=== PATIENT | female | born 1940 | race Caucasian/White ===

== ENCOUNTER 2022-12-11 09:27 | Outpatient (CLI) | payer MEDICARE, BC, SELFPAY ==
--- NOTE | 2022-12-11 06:00 | DI.RAD_ITS ---
Exam(s) XR PAIN CLINIC THORACIC SP 2V EXAM: XR PAIN CLINIC THORACIC SP 2V CLINICAL HISTORY: Dx: Thoracic Radiculopathy. TECHNIQUE: Fluoroscopy was provided for the referring physician for guidance with performing pain cl inic injection procedure. COMPARISON: No exams were available for comparison FINDINGS: Please see procedure note for details. Fluoro time: 24.9 seconds RADIATION DOSE DELIVERED: Ka,r=6.67 mGy
[2022-12-11 09:38] VITALS: BP 167/91; PULSE 98; RESP 20; TEMP 36.6; O2SAT 100
[2022-12-11 10:23] VITALS: BP 166/92; PULSE 104; RESP 19; O2SAT 100
[2022-12-11] MEDS: Dexamethasone Sod. Phos./Pres-Free 10 MG/ML VIAL IJ (10:25)
[2022-12-11] MEDS: Omnipaque 240 MG/ML 50 ML BTL IJ (10:25)
--- NOTE | 2022-12-11 10:42 | PDOC.PAIN_ITS ---
Date of service: 12/11/22 Time of Service: 10:42 Pain Managment Procedure Note Procedure Note Procedure Note: Procedure Note Thoracic Interlaminar Epidural Steroid Injection Date of Service: December 11, 2022 Patient:? HEMANTH GALEAS? Provider:? Roscoe Kemp DO, MPH HEMANTH has been referred to the [facility] for thoracic epidural steroid injection.? Pre-operative diagnosis: Thoracic Radiculopathy Post-operative diagnosis: Same Pre-procedure pain: VAS= 6/10 Comments: She was referred by her surgeon directly for this procedure. I did review the medical records and MRI. I also discussed the signs and symptoms with the patient. HEMANTH was interviewed and the medical record was reviewed.? There were no medical, pharmacologic, radiographic or other structural contraindications to attempting fluoroscopically guided thoracic interlaminar epidural steroid injection.? Risks, potential side effects, indications, and potential benefits of the procedure were reviewed with HEAMNTH.? Questions and concerns were addressed.? After it was clear that the patient was fully informed about the procedure, the printed consent form was signed by the patient and myself.? HEMANTH was placed in the prone position on the fluoroscopy table and automated blood pressure cuff as well as pulse oximeter was applied. A standard time-out procedure was performed. The skin entry point for entering the epidural space by a midline T11-T12 interlaminar approach was identified under fluoroscopy and marked.? The skin entry point was thoroughly cleaned with Chloroprep preparation and the skin was draped.? Next a mixture of 2 mls of 1% lidocaine was infiltrated into the area of the planned skin entry point and underlying subcutaneous tissues.? Next an 18 gauge Tuohy needle was placed under fluoroscopic guidance and with loss of resistance technique into the epidural space utilizing multiple AP and 55 degree contralateral fluoroscopic views.? Upon correct needle placement and loss of resistance, there were no paresthesia or return of blood or CSF through the needle. Next 1 mls of preservative-free Omnipaque 240 was injected with clear epidural spread in the A/P and oblique views. Next, a solution of 15 mg of preservative-free Dexamethasone was injected. This was followed with 1ml of preservative-free normal saline. No unusual discomfort was expressed by HEMANTH. The needle was withdrawn without difficulty. (49 mls of Omnipaque and 5 mg of Dexamethasone was wasted) HEMANTH was observed and was without hemodynamic, neurologic, or allergic reactions.? Fluoroscopic images were digitally archived. HEMANTH's vital signs were stable throughout the procedure and were as recorded in the doc flowsheet by the nursing staff.? If given, dosages of intravenous drugs for anxiolysis and analgesia were documented in MAR. Follow up plans and appointments were discussed with HEMANTH.? Post procedure instruction was given as documented in nursing documentation and having met discharge criteria, [facility] ? COMMENTS: No apparent complications. Post-procedure pain: VAS= 2/10. HEMANTH to contact [facility] as needed. If at least 50% improvement in pain and/or function for at least 3 months is achieved, this procedure can be repeated. I personally completed the entire procedure. ROSCOE KEMP DO, MPH ABPMR-subspecialty board certification in Pain Medicine [facility] for Pain Management
== END 2022-12-11 09:28 | disposition home or self-care (01) ==
PROVIDERS: PCP Family Medicine; Visit Provider Preventive Medicine Occupational Medicine
DX: M54.50 Low back pain, unspecified (principal); M54.14 Radiculopathy, thoracic region
CPT/HCPCS: 00123; 62321; 72070; Q9967

== ENCOUNTER 2023-03-27 07:58 | Outpatient (CLI) | payer MEDICARE, BC, SELFPAY ==
[2023-03-27 08:08] VITALS: BP 157/93; PULSE 85; RESP 20; TEMP 36.7; O2SAT 99
--- NOTE | 2023-03-27 08:53 | PDOC.PAIN ---
Date of service: 03/27/23 Time of Service: 08:53 Pain Managment Procedure Note Procedure Note Procedure Note: PROCEDURE NOTE THORACIC EPIDURAL STEROID INJECTION Date of Service: March 27, 2023 Patient:Rayne Paulino? Provider: Roscoe Kemp DO, MPH Rayne Ramirez has been referred to the [facility] for a thoracic epidural steroid injection. Pre-operative diagnosis: Thoracic Radiculopathy Post-operative diagnosis: Same Pre-Procedure Pain: VAS= 6/10 Comments: She last had this procedure on 12/11/22 and had >3 months of >50% pain relief. Her pain is starting to return. Rayne was interviewed and the medical record was reviewed.? There were no medical, pharmacologic, radiographic or other structural contraindications to attempting fluoroscopically guided thoracic epidural steroid injection.? Risks, potential side effects, indications, and potential benefits of the procedure were reviewed with Rayne.? Questions and concerns were addressed.? After it was clear that Rayne was fully informed about the procedure, the printed consent form was signed by the patient and myself.? Rayne was placed in the prone position on the fluoroscopy table and automated blood pressure cuff and pulse oximeter applied. The skin entry point for entering/approaching the epidural space for the lumbar epidural steroid injection was marked. Following thorough chlorhexadine preparation of the skin and draping and 1% lidocaine infiltration of the skin entry point and subcutaneous tissues, an 18 gauge Touhy needle was placed and advanced under fluoroscopic guidance and with loss of resistance technique into the T12-L1 epidural space. Needle tip placement and depth were aided and confirmed by fluoroscopy. There was no paresthesia or return of blood or CSF through the needle. 1 mls of Omnipaque 240 was injected with clear epidural spread confirmed with fluoroscopy. 15 mg of Dexamethasone was? injected. This was followed by 1 ml of preservative-free normal saline to flush the steroid out of the needle. There was no unusual discomfort expressed by Rayne. The needle was withdrawn without difficulty. (49 mls of Omnipaque was wasted) Rayne was observed and was without hemodynamic, neurologic, or allergic reactions.? Fluoroscopic images were digitally archived. Rayne's vital signs were stable throughout the procedure and were as recorded in nursing records. Follow up plans and appointments were discussed with Rayne. Post procedure instruction was given as documented in nursing records and having met discharge criteria Rayne was discharged from the [facility]. COMMENTS: I had difficulty getting into the T11-T12 interspace. After some time attempting to insert the needle at this sight, I did inform the patient and I did drop down to the T12-L1 level and had no difficulty getting in at this level. No apparent complications. Post-procedure pain: VAS= 0/10. Rayne to contact [facility] as needed. If at least 50% improvement in pain and/or function for at least 3 months is achieved, this procedure can be repeated. I personally performed this entire procedure. ROSCOE KEMP DO, MPH ABPMR-subspecialty board certification in Pain Medicine [facility]
--- NOTE | 2023-03-27 08:58 | DI.RAD_ITS ---
Exam(s) XR PAIN CLINIC THORACIC SP 2V EXAM: XR PAIN CLINIC THORACIC SP 2V CLINICAL HISTORY: DX: Thoracic radiculopathy. TECHNIQUE: Fluoroscopy was provided for the referring physician for guidance with performing pain cl inic injection procedure. COMPARISON: No exams were available for comparison FINDINGS: Please see procedure note for details. Fluoro time: 87.2 seconds RADIATION DOSE DELIVERED: Ka,r=16.25 mGy
[2023-03-27 08:59] VITALS: BP 164/94; PULSE 90; RESP 14; O2SAT 90
[2023-03-27] MEDS: Omnipaque 240 MG/ML 50 ML BTL IJ (09:01)
[2023-03-27] MEDS: Epidural Tray 1 EACH MC (09:01)
[2023-03-27] MEDS: Dexamethasone Sod. Phos./Pres-Free 10 MG/ML VIAL IJ (09:01)
== END 2023-03-27 07:59 | disposition home or self-care (01) ==
LOC: PC 07:59
PROVIDERS: PCP Family Medicine; Visit Provider Preventive Medicine Occupational Medicine
DX: M54.9 Dorsalgia, unspecified (principal); M54.14 Radiculopathy, thoracic region
CPT/HCPCS: 123; 62321; 72070; 00123; J1100; Q9967

== ENCOUNTER 2023-08-27 08:59 | Outpatient (CLI) | payer MEDICARE, BC, SELFPAY ==
[2023-08-27] VITALS (9 sets, daily range): BP systolic 189–213; BP diastolic 81–104; PULSE 71–90; RESP 17–20; TEMP 36.5; O2SAT 98–100
--- NOTE | 2023-08-27 09:51 | PDOC.PAIN ---
Date of service: 08/27/23 Time of Service: 09:52 Pain Managment Procedure Note Procedure Note Procedure Note: Procedure Note Thoracic Interlaminar Epidural Steroid Injection Date of Service: August 27, 2023 Patient:Rayne Duron? Provider:? Roscoe Kemp DO, MPH Rayne has been referred to the [facility] for thoracic epidural steroid injection.? Pre-operative diagnosis: Thoracic Radiculopathy Post-operative diagnosis: Same Pre-procedure pain: VAS= 7/10 Comments: She had >3 months of >50% pain relief with her last TESI in March. Her pain has mostly returned. Rayne was interviewed and the medical record was reviewed.? There were no medical, pharmacologic, radiographic or other structural contraindications to attempting fluoroscopically guided thoracic interlaminar epidural steroid injection.? Risks, potential side effects, indications, and potential benefits of the procedure were reviewed with Rayne.? Questions and concerns were addressed.? After it was clear that the patient was fully informed about the procedure, the printed consent form was signed by the patient and myself.? Rayne was placed in the prone position on the fluoroscopy table and automated blood pressure cuff as well as pulse oximeter was applied. A standard time-out procedure was performed. The skin entry point for entering the epidural space by a midline T12-L1 interlaminar approach was identified under fluoroscopy and marked.? The skin entry point was thoroughly cleaned with Chlorhexadine preparation and the skin was draped.? Next a mixture of 2 mls of 1% lidocaine was infiltrated into the area of the planned skin entry point and underlying subcutaneous tissues.? Next an 18 gauge Tuohy needle was placed under fluoroscopic guidance and with loss of resistance technique into the epidural space utilizing multiple AP and lateral fluoroscopic views.? Upon correct needle placement and loss of resistance, there were no paresthesia or return of blood or CSF through the needle. Next 1 mls of preservative-free Omnipaque 240 was injected with clear epidural spread in the A/P and lateral views. Next, a solution of 15 mg of preservative-free Dexamethasone was injected. This was followed with 1ml of preservative-free normal saline. No unusual discomfort was expressed by Rayne. The needle was withdrawn without difficulty. (49 mls of Omnipaque and 5 mg of Dexamethasone was wasted) Rayne was observed and was without hemodynamic, neurologic, or allergic reactions.? Fluoroscopic images were digitally archived. Rayne's vital signs were stable throughout the procedure and were as recorded in the doc flowsheet by the nursing staff.? If given, dosages of intravenous drugs for anxiolysis and analgesia were documented in MAR. Follow up plans and appointments were discussed with Rayne.? Post procedure instruction was given as documented in nursing documentation and having met discharge criteria, Rayne was [facility] from the [facility]. ? COMMENTS: I initially attempted to complete this procedure at T11-T12 as I did in March 2023, but could not enter the space as it was too tight. I did switch to T12-L1 and entered the space with no problems. I did inform the patient prior to this change and she approved. No apparent complications. Post-procedure pain: VAS= 4/10. Rayne to contact [place] for [facility] as needed. If at least 50% improvement in pain and/or function for at least 3 months is achieved, this procedure can be repeated. I personally completed the entire procedure. ROSCOE KEMP DO, MPH ABPMR-subspecialty board certification in Pain Medicine [facility] [facility]
--- NOTE | 2023-08-27 09:52 | DI.RAD_ITS ---
Exam(s) XR PAIN CLINIC THORACIC SP 2V EXAM: XR PAIN CLINIC THORACIC SP 2V CLINICAL HISTORY: Thoracic radiculopathy TECHNIQUE: 2D and realtime digital imaging was performed. Radiologist not present. CONTRAST MATERIAL: None. COMPARISON: No exams were available for comparison FINDINGS: Fluoroscopy was provided for pain management therapy. Please refer to procedure report or details. Radiation Exposure Index: Ka,r=14.92 mGy IMPRESSION: As above. RADIATION DOSE DELIVERED:
[2023-08-27] MEDS: Epidural Tray 1 EACH MC (10:08)
[2023-08-27] MEDS: Omnipaque 240 MG/ML 50 ML BTL IJ (10:08)
[2023-08-27] MEDS: Dexamethasone Sod. Phos./Pres-Free 10 MG/ML VIAL IJ (10:09)
== END 2023-08-27 09:00 | disposition home or self-care (01) ==
LOC: PC 09:00
PROVIDERS: PCP Internal Medicine; Visit Provider Preventive Medicine Occupational Medicine
DX: M54.14 Radiculopathy, thoracic region (principal); M54.50 Low back pain, unspecified
CPT/HCPCS: 62321; 72070; J1100; Q9967

== ENCOUNTER 2023-12-03 07:54 | Outpatient (CLI) | payer MEDICARE, BC, SELFPAY ==
--- NOTE | 2023-12-03 06:00 | DI.RAD_ITS ---
Exam(s) XR PAIN CLINIC THORACIC SP 2V EXAM: XR PAIN CLINIC THORACIC SP 2V CLINICAL HISTORY: DX: Lumbar Radiculopathy TECHNIQUE: 2D and realtime digital imaging was performed. CONTRAST MATERIAL: Refer to procedure report. COMPARISON: No exams were available for comparison FINDINGS: Fluoroscopy was provided for Dr. Kemp during the performance of a thoracic epidural steroid injectio n. Please refer to the procedure report for complete details. Ka,r=5.35 mGy IMPRESSION: RADIATION DOSE DELIVERED: 0.0 0.0 0
[2023-12-03 08:07] VITALS: BP 155/78; PULSE 82; RESP 18; TEMP 36.4; O2SAT 99
[2023-12-03 08:40] VITALS: PULSE 106; RESP 15; O2SAT 100
[2023-12-03 08:43] VITALS: BP 205/159; PULSE 104; PULSE 105; RESP 16; O2SAT 100
[2023-12-03 08:45] VITALS: BP 176/97; PULSE 107; PULSE 92; RESP 11; O2SAT 100
--- NOTE | 2023-12-03 08:52 | PDOC.PAIN ---
Date of service: 12/03/23 Time of Service: 08:52 Pain Managment Procedure Note Procedure Note Procedure Note: PROCEDURE NOTE THORACIC EPIDURAL STEROID INJECTION Date of Service: December 03, 2023 Patient:Rayne Paulino? Provider: Roscoe Kemp DO, MPH Rayne Ramirez has been referred to the [facility] for a Thoracic epidural steroid injection. Pre-operative diagnosis: Thoracic Radiculopathy ICD-10 M54.14 Post-operative diagnosis: Same Pre-Procedure Pain: VAS= 7 /10 with activity Comments: She had her last thoracic SARA on 08/27/23 and had >3 months of >50% functional improvement Rayne was interviewed and the medical record was reviewed.? There were no medical, pharmacologic, radiographic or other structural contraindications to attempting fluoroscopically guided Thoracic epidural steroid injection.? Risks, potential side effects, indications, and potential benefits of the procedure were reviewed with Rayne.? Questions and concerns were addressed.? After it was clear that Rayne was fully informed about the procedure, the printed consent form was signed by the patient and myself.? Rayne was placed in the prone position on the fluoroscopy table and automated blood pressure cuff and pulse oximeter applied. The skin entry point for entering/approaching the epidural space for the thoracic epidural steroid injection was marked. Following thorough chlorhexadine preparation of the skin and draping and 1% lidocaine infiltration of the skin entry point and subcutaneous tissues, an 18 gauge Touhy needle was placed and advanced under fluoroscopic guidance and with loss of resistance technique into the T12-L1 epidural space. Needle tip placement and depth were aided and confirmed by fluoroscopy. There was no paresthesia or return of blood or CSF through the needle. 1 mls of Omnipaque 240 was injected with clear epidural spread confirmed with fluoroscopy. 15 mg of Dexamethasone (10 mg/cc) was? injected. This was followed by 1 ml of preservative-free normal saline to flush the steroid out of the needle. There was no unusual discomfort expressed by Rayne. The needle was withdrawn without difficulty. (49 mls of Omnipaque was wasted) Rayne was observed and was without hemodynamic, neurologic, or allergic reactions.? Fluoroscopic images were digitally archived. Rayne's vital signs were stable throughout the procedure and were as recorded in nursing records. Follow up plans and appointments were discussed with Rayne. Post procedure instruction was given as documented in nursing records and having met discharge criteria Rayne was discharged from the [facility]. COMMENTS: No apparent complications. Post-procedure pain: VAS= 2/10. Rayne to contact [facility] as needed. If at least 50% improvement in pain and/or function for at least 3 months is achieved, this procedure can be repeated. I personally performed this entire procedure. ROSCOE KEMP DO, MPH ABPMR-subspecialty board certification in Pain Medicine [facility]
[2023-12-03] MEDS: Omnipaque 240 MG/ML 50 ML BTL IJ (08:54)
[2023-12-03] MEDS: Dexamethasone Sod. Phos./Pres-Free 10 MG/ML VIAL IJ (08:54)
[2023-12-03] MEDS: Epidural Tray 1 EACH MC (08:54)
== END 2023-12-03 07:55 | disposition home or self-care (01) ==
LOC: PC 07:54
PROVIDERS: PCP Family Medicine; Visit Provider Preventive Medicine Occupational Medicine
DX: M54.14 Radiculopathy, thoracic region (principal); M54.59 Other low back pain
CPT/HCPCS: 62321; 72070; J1100; Q9967

== ENCOUNTER 2024-03-23 09:38 | Outpatient (CLI) | payer MEDICARE, BC, SELFPAY ==
[2024-03-23 09:47] VITALS: BP 178/78; PULSE 85; RESP 18; TEMP 36.6; O2SAT 99
--- NOTE | 2024-03-23 09:48 | PDOC.PAIN ---
Date of service: 03/23/24 Time of Service: 10:35 Pain Managment Procedure Note Procedure Note Procedure Note: Thoracic Interlaminar Epidural Steroid Injection ? Location: L1-T12 ? Pre-procedure Diagnosis: M54.14- Radiculopathy, thoracic region ? Post-procedure Diagnosis: ?The same as above ? Sedation:? ? none ? Estimated blood loss:? less than 2 cc ? Surgeon:? 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 ? Procedure Detail:? The procedure and potential risks were explained to the patient and informed written consent was obtained. The patient was escorted to the procedure room and placed in the prone position. Pillows were utilized for proper positioning and comfort. Time out was performed in the procedure room with nursing staff confirming the patient's identity, procedure to be performed, allergies, and any blood thinning or anti-platelet medications.? The patient's neck and upper back was prepped with ChloraPrep and draped in a sterile fashion. Sterile technique was maintained throughout the procedure.? Sterile gloves were used, a face mask was worn, and new single dose vials of all medications were used with the top being swabbed with alcohol and given time to dry prior to withdrawal of medication. Using a 25-gauge 1.5 inch needle, 1% lidocaine was instilled into the superficial soft tissue overlying the targeted area to provide local anesthesia. With fluoroscopic guidance, a 17 -gauge Tuohy needle was advanced toward the interlaminar space of L1-T12. The needle was then advance through the ligamentum flavum and into the posterior epidural space using the loss of resistance technique. Correct needle placement was confirmed through review of the AP and contralateral oblique fluoroscopic views. A 19-gauge arrow catheter was threaded cephalad to the Right T11-12 Following negative aspiration, one cc of Omnipaque 240 contrast was injected which confirmed good flow throughout the epidural space and no evidence of vascular flow or flow into adjacent compartments. Next, following negative aspiration, 1 cc's of normal saline and 80mg of Depo-Medrol was injected. The needle was gently removed. The patient tolerated the procedure well and was transported to the recovery area for observation and discharge instructions. Permanent images saved and recorded.? PAIN LEVEL: PRE-PROCEDURE 05/20 POST-PROCEDURE 02/19 Plan:? Follow up as needed. Repeat prn
[2024-03-23 10:07] VITALS: PULSE 124; O2SAT 98
[2024-03-23 10:10] VITALS: PULSE 105; O2SAT 100
[2024-03-23 10:20] VITALS: PULSE 85; O2SAT 99
--- NOTE | 2024-03-23 10:31 | DI.RAD_ITS ---
Exam(s) XR PAIN CLINIC THORACIC SP 2V EXAM: XR PAIN CLINIC THORACIC SP 2V CLINICAL HISTORY: DX: Thoracic Radiculopathy TECHNIQUE: 2D and realtime digital imaging was performed. Radiologist not present. CONTRAST MATERIAL: None. COMPARISON: No exams were available for comparison FINDINGS: Fluoroscopy was provided for pain management therapy. Epidural steroid injection Please refer to procedure report or details. Radiation Exposure Index: Ka,r=8.25 mGy IMPRESSION: As above. RADIATION DOSE DELIVERED:
[2024-03-23] MEDS: Omnipaque 240 MG/ML 50 ML BTL IJ (10:34)
[2024-03-23] MEDS: methylPREDNISolone ACETATE 40 MG/ML VIAL IJ (10:34)
[2024-03-23] MEDS: Epidural Tray 1 EACH MC (10:34)
== END 2024-03-23 09:39 | disposition home or self-care (01) ==
LOC: PC 09:38
PROVIDERS: PCP Family Medicine; Visit Provider Anesthesiology Pain Medicine
DX: M54.50 Low back pain, unspecified (principal); M54.14 Radiculopathy, thoracic region
CPT/HCPCS: 00123; 62321; 72070; J1010; Q9967

== ENCOUNTER 2024-07-15 08:21 | Outpatient (CLI) | payer MEDICARE, BC, SELFPAY ==
[2024-07-15] VITALS (9 sets, daily range): BP systolic 106–242; BP diastolic 65–103; PULSE 75–105; RESP 15–22; TEMP 36.7; O2SAT 97–100
--- NOTE | 2024-07-15 06:00 | DI.RAD_ITS ---
Exam(s) XR PAIN CLINIC LUMBAR SP 2V EXAM: XR PAIN CLINIC LUMBAR SP 2V CLINICAL HISTORY: DX: Thoracic Radiculopathy TECHNIQUE: 2D and realtime digital imaging was performed. CONTRAST MATERIAL: Refer to procedure report. COMPARISON: No exams were available for comparison FINDINGS: Fluoroscopy was provided for Dr. Kemp during the performance of a thoracic epidural steroid injectio n. Please refer to the procedure report for complete details. Ka,r=5.22 mGy IMPRESSION: RADIATION DOSE DELIVERED: 0.0 0.0 0
[2024-07-15] MEDS: Omnipaque 240 MG/ML 50 ML BTL IJ (09:10)
[2024-07-15] MEDS: Dexamethasone Sod. Phos./Pres-Free 10 MG/ML VIAL IJ (09:11)
[2024-07-15] MEDS: Epidural Tray 1 EACH MC (09:19)
--- NOTE | 2024-07-15 09:23 | PDOC.PAIN ---
Date of service: 07/15/24 Time of Service: 09:23 Pain Managment Procedure Note Procedure Note Procedure Note: PROCEDURE NOTE THORACIC EPIDURAL STEROID INJECTION Date of Service: July 15, 2024 Patient:Rayne Paulino? Provider: Roscoe Kemp DO, MPH Rayne Ramirez has been referred to the [facility] for a thoracic epidural steroid injection. Pre-operative diagnosis: Lumbosacral Radiculopathy ICD-10 M54.16 Post-operative diagnosis: Same Pre-Procedure Pain: VAS= 7 /10 Comments: She has had this procedure numerous times in the past. Her last one was on 03/23/24 with >3 months of >50% pain relief. Rayne was interviewed and the medical record was reviewed.? There were no medical, pharmacologic, radiographic or other structural contraindications to attempting fluoroscopically guided Thoracic epidural steroid injection.? Risks, potential side effects, indications, and potential benefits of the procedure were reviewed with Rayne.? Questions and concerns were addressed.? After it was clear that Rayne was fully informed about the procedure, the printed consent form was signed by the patient and myself.? Rayne was placed in the prone position on the fluoroscopy table and automated blood pressure cuff and pulse oximeter applied. The skin entry point for entering/approaching the epidural space for the lumbar epidural steroid injection was marked. Following thorough chlorhexadine preparation of the skin and draping and 1% lidocaine infiltration of the skin entry point and subcutaneous tissues, an 18 gauge Touhy needle was placed and advanced under fluoroscopic guidance and with loss of resistance technique into the T12-L1 epidural space. Needle tip placement and depth were aided and confirmed by fluoroscopy. There was no paresthesia or return of blood or CSF through the needle. 1 mls of Omnipaque 240 was injected with clear epidural spread confirmed with fluoroscopy. 15 mg of Dexamethasone (10 mg/cc) was? injected. This was followed by 1 ml of preservative-free normal saline to flush the steroid out of the needle. There was no unusual discomfort expressed by Rayne. The needle was withdrawn without difficulty. (49 mls of Omnipaque was wasted) Rayne was observed and was without hemodynamic, neurologic, or allergic reactions.? Fluoroscopic images were digitally archived. Rayne's vital signs were stable throughout the procedure and were as recorded in nursing records. Follow up plans and appointments were discussed with Rayne. Post procedure instruction was given as documented in nursing records and having met discharge criteria Rayne was discharged from the [facility]. COMMENTS: No apparent complications. Post-procedure pain: VAS= 7/10. Rayne to contact [facility] as needed. If at least 50% improvement in pain and/or function for at least 3 months is achieved, this procedure can be repeated. I personally performed this entire procedure. ROSCOE KEMP DO, MPH ABPMR-subspecialty board certification in Pain Medicine [facility] Coding Conscious Sedation used for procedure: No CPT Codes: Inj Spine C/T w/Imaging - [id number] ([id number] ~G) Additional Codes: Date of Service (48904) Date of service: 07/15/24
== END 2024-07-15 08:22 | disposition home or self-care (01) ==
LOC: PC 08:22
PROVIDERS: PCP Physician Assistant; Visit Provider Preventive Medicine Occupational Medicine
DX: M54.14 Radiculopathy, thoracic region (principal)
CPT/HCPCS: 62321; 72100; J1100; Q9967

== ENCOUNTER 2024-10-21 14:29 | Outpatient (CLI) | payer MEDICARE, BC, SELFPAY ==
[2024-10-21] VITALS (14 sets, daily range): BP systolic 156–267; BP diastolic 79–119; PULSE 77–122; RESP 13–18; TEMP 36.5; O2SAT 96–100
--- NOTE | 2024-10-21 06:00 | DI.RAD_ITS ---
Exam(s) XR PAIN CLINIC THORACIC SP 2V EXAM: XR PAIN CLINIC THORACIC SP 2V CLINICAL HISTORY: DX: Thoracic Radiculopathy. TECHNIQUE: Fluoroscopy was provided for the referring physician for guidance with performing pain clinic injection procedure. COMPARISON: No exams were available for comparison FINDINGS: Please see procedure note for details. Fluoro time: 35.3 seconds RADIATION DOSE DELIVERED: Ka,r=8.7 mGy
--- NOTE | 2024-10-21 15:33 | PDOC.PAIN_ITS ---
Date of service: 10/21/24 Time of Service: 15:33 Pain Managment Procedure Note Procedure Note Procedure Note: Procedure Note Thoracic Interlaminar Epidural Steroid Injection Date of Service: October 21, 2024 Patient:? Rayne Ramirez? Provider:? Roscoe Kemp DO, MPH Rayne has been [facility] for thoracic epidural steroid injection.? Pre-operative diagnosis: Cervical Radiculopathy ICD-10 M54.12 Post-operative diagnosis: Same Pre-procedure pain: VAS= 6/10 Comments: She last had this procedure on 07/15/24 with >3 months of >50% pain relief. Most of her pain has returned. Rayne was interviewed and the medical record was reviewed.? There were no medical, pharmacologic, radiographic or other structural contraindications to attempting fluoroscopically guided thoracic interlaminar epidural steroid injection.? Risks, potential side effects, indications, and potential benefits of the procedure were reviewed with Rayne.? Questions and concerns were addressed.? After it was clear that the patient was fully informed about the procedure, the printed consent form was signed by the patient and myself.? Rayne was placed in the prone position on the fluoroscopy table and automated blood pressure cuff as well as pulse oximeter was applied. A standard time-out procedure was performed. The skin entry point for entering the epidural space by a midline T11-T12 interlaminar approach was identified under fluoroscopy and marked.? The skin entry point was thoroughly cleaned with Chlorhexadine preparation and the skin was draped.? Next a mixture of 2 mls of 1% lidocaine was infiltrated into the area of the planned skin entry point and underlying subcutaneous tissues.? Next an 18 gauge Tuohy needle was placed under fluoroscopic guidance and with loss of resistance technique into the epidural space utilizing multiple AP and 55 degree contralateral fluoroscopic views.? Upon correct needle placement and loss of resistance, there were no paresthesia or return of blood or CSF through the needle. Next 1 mls of preservative-free Omnipaque 240 was injected with clear epidural spread in the A/P and oblique views. Next, a solution of 15 mg of preservative-free Dexamethasone was injected. This was followed with 1ml of preservative-free normal saline. No unusual discomfort was expressed by Rayne. The needle was withdrawn without difficulty. (49 mls of Omnipaque and 5 mg of Dexamethasone was wasted) Rayne was observed and was without hemodynamic, neurologic, or allergic reactions.? Fluoroscopic images were digitally archived. Rayne's vital signs were stable throughout the procedure and were as recorded in the doc flowsheet by the nursing staff.? If given, dosages of intravenous drugs for anxiolysis and analgesia were documented in MAR. Follow up plans and appointments were discussed with Rayne.? Post procedure instruction was given as documented in nursing documentation and having met discharge criteria, [facility] ? COMMENTS: No apparent complications. Post-procedure pain: VAS= 7/10. Her blood pressure did increase and stay elevated. She was not symptomatic and she states that this happens each time that she has a procedure. We did watch her for 25 minutes and she remained asymptomatic. Rayne to contact [place] [facility] as needed. If at least 50% improvement in pain and/or function for at least 3 months is achieved, this procedure can be repeated. I personally completed the entire procedure. ROSCOE KEMP DO, MPH ABPMR-subspecialty board certification in Pain Medicine [facility]-[place] [facility] Coding Conscious Sedation used for procedure: No CPT Codes: Inj Spine C/T w/Imaging - 25796 ([id number] ~G) Additional Codes: Date of Service (29791) Date of service: 10/21/24 Diagnoses: Thoracic radiculopathy
[2024-10-21] MEDS: Epidural Tray 1 EACH MC (15:48)
[2024-10-21] MEDS: Omnipaque 240 MG/ML 50 ML BTL IJ (15:48)
[2024-10-21] MEDS: Dexamethasone Sod. Phos./Pres-Free 10 MG/ML VIAL IJ (15:49)
== END 2024-10-21 14:30 | disposition home or self-care (01) ==
LOC: PC 14:29
PROVIDERS: PCP Physician Assistant; Visit Provider Preventive Medicine Occupational Medicine
DX: M54.2 Cervicalgia (principal); M54.12 Radiculopathy, cervical region
CPT/HCPCS: 62321; 72070; J1100; Q9967